=== PATIENT | male | born 1935 | race Caucasian/White ===

== ENCOUNTER 2016-12-25 16:03 | Inpatient (IN) | payer OTHER, MEDICARE ==
[~2016-12-25] VITALS: Ht 182.9 cm; Wt 103.0 kg
[2016-12-25] VITALS (8 sets, daily range): BP systolic 99–200; BP diastolic 56–95; PULSE 74–105; RESP 16–18; TEMP 98.1–99; O2SAT 95–100
[~2016-12-25 16:03] MED LIST: AZAT50 PO
[2016-12-25] MEDS ORDERED: IOHEXOL 350 MG/ML 10 ML VIAL (for RAD DIAG) IV PUSH ONE (16:04)
[2016-12-25] MEDS ORDERED: ceFAZolin 2 GM PREMIX 50 ML IV ONE (16:30)
[2016-12-25] MEDS ORDERED: LIDOCAINE 2%/EPINEPHrine 1:100,000 30ML MDV INFIL ONE (16:30)
[2016-12-25] MEDS ORDERED: ONDANSETRON HCL 4 MG/2 ML VIAL IVP ONE (16:30)
[2016-12-25] MEDS ORDERED: DIPHTH/TETANUS/ACEL PERTUSSIS (BOOSTER) 0.5 ML VIAL/PFS IM ONE (16:30)
[2016-12-25] MEDS ORDERED: SODIUM CHLORIDE 0.9% FLUSH 10 ML FLUSH IVF PRN (16:30)
--- NOTE | 2016-12-25 16:44 | PD ---
Physical Exam Date Seen by Provider: Dec 25, 2016 Time Seen by Provider: 16:43 Data Data Last Documented VS Vital Signs Date Time Temp Pulse Resp B/P (MAP) Pulse Ox O2 Delivery O2 Flow Rate FiO2 12/25/16 18:14 95 16 149/58 (88) 95 12/25/16 16:25 99.0 Room Air Orders Orders Complete Blood Count With Diff (12/25/16 16:16) Prothrombin Time / Inr (Pt) (12/25/16 16:16) Act Partial Throm Time (Ptt) (12/25/16 16:16) Type And Screen (12/25/16 16:16) Chest, Single Ap (12/25/16 16:16) Pelvis, Ap Only (Routine) (12/25/16 16:16) Ct Brain W/O Iv Contrast(Rout) (12/25/16 16:16) Ct Cerv Spine W/O Contrast (12/25/16 16:16) Ct Abd/Pel W Iv Contrast(Rout) (12/25/16 16:16) Ct Thorax/ Chest W Iv Contrast (12/25/16 16:16) Iv Access Insert/Monitor (12/25/16 16:16) Ecg Monitoring (12/25/16 16:16) Oximetry (12/25/16 16:16) Oxygen Administration (12/25/16 16:16) Remove Backboard (12/25/16 16:16) Cefazolin 2 Gm Premix (Ancef 2 Gm Premix (12/25/16 16:30) Ondansetron Inj (Zofran Inj) (12/25/16 16:30) Vgxz-Xyt-Cbaqnn (Booster) Inj (Boostrix (12/25/16 16:30) Sodium Chloride 0.9% Flush (Ns Flush) (12/25/16 16:30) Ondansetron Inj (Zofran Inj) (12/25/16 17:15) Basic Metabolic Panel (Bmp) (12/25/16 16:00) Lidocai-Epi 2%-1:100,000 Inj (Xylocaine- (12/25/16 17:30) Iohexol 350 Inj (Omnipaque 350 Inj) (12/25/16 16:04) Consult Neurosurgery (12/25/16 ) Admit Order (Ed Use Only) (12/25/16 18:21) Labs Laboratory Tests Test 12/25/16 16:00 White Blood Count 10.5 TH/MM3 Red Blood Count 4.45 MIL/MM3 Hemoglobin 13.6 GM/DL Hematocrit 40.1 % Mean Corpuscular Volume 90.0 FL Mean Corpuscular Hemoglobin 30.5 PG Mean Corpuscular Hemoglobin Concent 33.8 % Red Cell Distribution Width 14.6 % Platelet Count 192 TH/MM3 Mean Platelet Volume 9.5 FL Neutrophils (%) (Auto) 90.5 % Lymphocytes (%) (Auto) 6.6 % Monocytes (%) (Auto) 1.9 % Eosinophils (%) (Auto) 0.5 % Basophils (%) (Auto) 0.5 % Neutrophils # (Auto) 9.5 TH/MM3 Lymphocytes # (Auto) 0.7 TH/MM3 Monocytes # (Auto) 0.2 TH/MM3 Eosinophils # (Auto) 0.1 TH/MM3 Basophils # (Auto) 0.1 TH/MM3 CBC Comment DIFF FINAL Differential Comment Prothrombin Time 10.7 SEC Prothromb Time International Ratio 1.0 RATIO Activated Partial Thromboplast Time 23.8 SEC Blood Urea Nitrogen 15 MG/DL Creatinine 1.04 MG/DL Random Glucose 253 MG/DL Calcium Level 8.1 MG/DL Sodium Level 141 MEQ/L Potassium Level 3.9 MEQ/L Chloride Level 105 MEQ/L Carbon Dioxide Level 24.7 MEQ/L Anion Gap 11 MEQ/L Estimat Glomerular Filtration Rate 69 ML/MIN MDM Supervised Visit with ETTA: No Narrative Course I was asked to evaluate this patient's scalp laceration. The patient was initially seen by Dr. Santo. Please see that note for full H& P. On my exam the patient is alert but confused. There is a complex laceration of the forehead totaling approximately 8-10 cm. Laceration repair was performed. Please see my procedure note for details. Dr. Santo retains care of this patient. Please see her note for disposition. Procedures Procedure Narrative LACERATION LOCATION: Scalp LENGTH: 8-10 cm NUMBER OF STITCHES/LES: 8 deep, 17 superficial REPAIR: The area of the laceration was prepped with Betadine and sterilely draped. The laceration was infiltrated with 2% lidocaine with epinephrine. The wound was copiously irrigated and explored without evidence of foreign body , tendon injury or neurovascular injury. The wound was closed using 3-0 Vicryl and 4-0 nylon. This was a 2 layer repair. A sterile dressing was applied. The patient was advised to keep the dressing clean and dry. Patient tolerated the procedure well. Angelina Borden Dec 25, 2016 16:44
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
[2016-12-25 17:06] LABS: APTT (PATIENT) 23.8 SEC (24.3-30.1); PROTHROMBIN TIME - PATIENT 10.7 SEC (9.8-11.6)
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
[2016-12-25] MEDS ORDERED: ONDANSETRON HCL 4 MG/2 ML VIAL IV PUSH ONE (17:15)
[2016-12-25 17:21] LABS: BICARBONATE 24.7 MEQ/L (21.0-32.0); POTASSIUM 3.9 MEQ/L (3.5-5.1)
[2016-12-25 17:25] LABS: AUTOMATED NEUTROPHIL # 9.5 TH/MM3 (1.8-7.7); BASOPHIL # 0.1 TH/MM3 (0-0.2); BASOPHIL % 0.5 % (0.0-2.0); EOSINOPHIL # 0.1 TH/MM3 (0-0.4); EOSINOPHIL % 0.5 % (0.0-4.0); HEMATOCRIT 40.1 % (39.0-51.0); HEMO FLAGS DIFF FINAL; LYMPH % 6.6 % (9.0-44.0); LYMPHOCYTE # 0.7 TH/MM3 (1.0-4.8); MEAN CORPUSCULAR HEMOGLOBIN 30.5 PG (27.0-34.0); MEAN CORPUSCULAR HGB CONC 33.8 % (32.0-36.0); MONO % 1.9 % (0.0-8.0); NEUT % 90.5 % (16.0-70.0); PLATELET COUNT 192 TH/MM3 (150-450); RED BLOOD COUNT 4.45 MIL/MM3 (4.50-5.90); RED CELL DISTRIBUTION WIDTH 14.6 % (11.6-17.2); WHITE BLOOD COUNT 10.5 TH/MM3 (4.0-11.0)
[2016-12-25] MEDS ORDERED: LIDOCAINE 2%/EPINEPHrine 1:100,000 20ML MDV INFIL ONE (17:30)
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
[2016-12-25] MEDS ORDERED: MAGNESIUM HYDROXIDE SUSP 30 ML CUP PO PRN (19:45)
[2016-12-25] MEDS ORDERED: ACETAMINOPHEN 325 MG TAB PO PRN (19:45)
[2016-12-25] MEDS ORDERED: ONDANSETRON HCL 4 MG/2 ML VIAL IV PRN (19:45)
[2016-12-25] MEDS: PANTOPRAZOLE SODIUM 40 MG VIAL IVP SCH (19:45)
[2016-12-25] MEDS ORDERED: MISCELLANEOUS NURSING INFORMATION XX SCH (19:45)
[2016-12-25] MEDS ORDERED: CHLORHEXIDINE GLUCONATE 2 % 1 PACK (2 CLOTHS) TOP PRN (19:45)
[2016-12-25] MEDS ORDERED: ENALAPRILAT 1.25 MG/ML VIAL IV PRN (19:45)
[2016-12-25] MEDS: SODIUM CHLORIDE 0.9% FLUSH 10 ML FLUSH IV FLUSH SCH (21:00)
[2016-12-25] MEDS: BACITRACIN TOP OINT 15 GM TUBE TOP SCH (21:00)
[2016-12-25] MEDS: REMOVE OLD LIDOCAINE PATCH T-DERMAL SCH (21:00)
[2016-12-25] MEDS: ACETAMINOPHEN 1000 MG/100 ML 100 ML IV SCH (21:00)
[2016-12-25] MEDS: DOCUSATE SODIUM 50 MG/SENNA 8.6 MG TAB PO SCH (21:00)
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
[2016-12-26] VITALS (21 sets, daily range): BP systolic 75–146; BP diastolic 45–74; PULSE 78–99; RESP 16–24; TEMP 97.4–98.5; O2SAT 94–100
[2016-12-26] MEDS: METHOCARBAMOL 500 MG TAB PO SCH ×3 (00:45→21:20)
[2016-12-26] MEDS ORDERED: SODIUM CHLORID 0.9% 500 ML INJ 500 ML IV ONE (01:00)
[2016-12-26] MEDS: NS + KCL 20 MEQ INJ 1,000 ML IV SCH ×2 (01:00→02:49)
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
[2016-12-26] MEDS ORDERED: SODIUM CHLOR 0.9% 1000 ML INJ 1,000 ML IV ONE (02:00)
[2016-12-26] MEDS: CHLORHEXIDINE GLUCONATE 2 % 1 PACK (2 CLOTHS) TOP SCH (04:00)
[2016-12-26] MEDS: ACETAMINOPHEN 1000 MG/100 ML 100 ML IV SCH ×2 (04:06→08:33)
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
[2016-12-26] MEDS: levETIRAcetam INJ 500 MG in SODIUM CHLORIDE 0.9% INJ 100 ML IV SCH ×2 (08:33→21:19)
[2016-12-26] MEDS: DOCUSATE SODIUM 50 MG/SENNA 8.6 MG TAB PO SCH ×2 (08:33→21:20)
[2016-12-26] MEDS: SODIUM CHLORIDE 0.9% FLUSH 10 ML FLUSH IV FLUSH SCH ×2 (08:33→21:20)
[2016-12-26] MEDS: PANTOPRAZOLE SODIUM 40 MG VIAL IVP SCH (08:33)
[2016-12-26] MEDS: BACITRACIN TOP OINT 15 GM TUBE TOP SCH ×2 (08:34→21:00)
[2016-12-26] MEDS: LIDOCAINE HCL 5% PATCH T-DERMAL SCH (08:37)
[2016-12-26] MEDS: RESP: ALBUTEROL 2.5 MG/IPRATROPIUM 0.5 MG NEB (SCH) NEB ×3 (08:45→20:00)
--- NOTE | 2016-12-26 09:16 | RADRPT ---
EXAM DATE/TIME: 12/26/2016 08:51 [facility] COMPARISON: CHEST SINGLE AP, December 25, 2016, 16:40. INDICATIONS : Pulmonary contusion. Chest pain. MEDICAL HISTORY : Diverticulitis. Seizures. SURGICAL HISTORY : Cholecystectomy. Inguinal hernia repair. ENCOUNTER: Subsequent ACUITY: 2 days PAIN SCORE: 3/10 LOCATION: middle chest FINDINGS: A single view of the chest demonstrates the lungs to be symmetrically aerated without evidence of mas s, infiltrate or effusion. The cardiomediastinal contours are unremarkable. Osseous structures are intact. CONCLUSION: No acute disease. Pedro Burr MD on December 26, 2016 at 9:13 Board Certified Radiologist. This report was verified electronically.
[2016-12-26] MEDS ORDERED: LIDOCAINE HCL 1% 50 ML VIAL INFIL ONE (10:00)
[2016-12-26] MEDS ORDERED: OXYMETAZOLINE HCL 0.05% 15 ML NASAL SPRAY NASAL ONE (10:00)
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
[2016-12-26] MEDS ORDERED: DEXTROSE 50% IN WATER 50 ML VIAL(D50) IV PRN (12:45)
[2016-12-26] MEDS ORDERED: GLUCAGON 1 MG/ML VIAL OTHER PRN (12:45)
[2016-12-26] MEDS: POLYETHYLENE GLYCOL 17 GM PKG PO SCH (13:36)
[2016-12-26 14:24] LABS: AUTOMATED NEUTROPHIL # 11.7 TH/MM3 (1.8-7.7); BASOPHIL % 0.2 % (0.0-2.0); HEMATOCRIT 31.1 % (39.0-51.0); HEMO FLAGS DIFF FINAL; LYMPH % 5.1 % (9.0-44.0); LYMPHOCYTE # 0.7 TH/MM3 (1.0-4.8); MEAN CELL VOLUME 91.2 FL (80.0-100.0); MEAN CORPUSCULAR HEMOGLOBIN 29.4 PG (27.0-34.0); MEAN CORPUSCULAR HGB CONC 32.2 % (32.0-36.0); MONO % 7.5 % (0.0-8.0); NEUT % 87.2 % (16.0-70.0); PLATELET COUNT 210 TH/MM3 (150-450); RED BLOOD COUNT 3.41 MIL/MM3 (4.50-5.90); RED CELL DISTRIBUTION WIDTH 14.8 % (11.6-17.2); WHITE BLOOD COUNT 13.4 TH/MM3 (4.0-11.0)
[2016-12-26 14:41] LABS: ALT (GPT) 55 U/L (12-78); ANION GAP 8 MEQ/L (5-15); AST (GOT) 115 U/L (15-37); BICARBONATE 25.5 MEQ/L (21.0-32.0); BLOOD UREA NITROGEN 25 MG/DL (7-18); CHLORIDE 109 MEQ/L (98-107); GLOMERULAR FILTRATION RATE 66 ML/MIN (>89); POTASSIUM 4.7 MEQ/L (3.5-5.1); SODIUM (NA) 142 MEQ/L (136-145)
[2016-12-26 14:44] LABS: ALKALINE PHOSPHATASE 71 U/L (45-117); TOTAL BILIRUBIN ADULT 0.7 MG/DL (0.2-1.0)
--- NOTE | 2016-12-26 15:34 | RADRPT ---
EXAM DATE/TIME: 12/26/2016 14:38 [facility] COMPARISON: No previous studies available for comparison. INDICATIONS : C1 fracture. MEDICAL HISTORY : None. SURGICAL HISTORY : None. ENCOUNTER: Initial ACUITY: 1 day PAIN SCORE: 4/10 LOCATION: neck TECHNIQUE: Multiplanar, multisequence MRI examination of the cervical spine was performed. FINDINGS: VERTEBRAE: Patient has history of C1 fracture. ALIGNMENT: No evidence of subluxation. CORD: Supple signal in the cord C5 and C6. POST FOSSA: The cerebellar tonsils are normal in position. There is no foramen magnum stenosis. C2-C3: The thecal sac has a normal configuration. There is no evidence of disc herniation or spinal canal s tenosis. The neural foramina are patent bilaterally. C3-C4: The thecal sac has a normal configuration. There is no evidence of disc herniation or spinal canal s tenosis. The neural foramina are patent bilaterally. C4-C5: Uncinate ridging is present with mild central bulging. There is no significant spinal stenosis. Min imal neuroforamina encroachment is present. C5-C6: Broad-based disc bulge is present with uncinate ridging. There is moderate spinal stenosis. There i s mild left neural foramen encroachment. C6-C7: Broad-based disc bulging and uncinate ridging. There is mild neuroforaminal encroachment bilaterally . There is moderate spinal stenosis. C7-T1: The thecal sac has a normal configuration. There is no evidence of disc herniation or spinal canal s tenosis. The neural foramina are patent bilaterally. CONCLUSION: Osteophyte disc complex C5-C6 and C6-7 moderate spinal stenosis. Controlled flexion extension films may be of benefit to exclude functional stenosis.. Subtle cord signal as described above. There is no hematoma. Alfredo Yanes MD FACR on December 26, 2016 at 15:29 Board Certified Radiologist. This report was verified electronically.
[2016-12-26] MEDS: INSULIN NovoLIN REGULAR SUPPLEMENTAL SCALE SQ SCH ×2 (15:37→21:00)
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
[2016-12-26 17:08] LABS: HEMOGLOBIN A1b 1.5 %; HEMOGLOBIN LA1C 2.2 %; HEMOGLOBIN P3 3.7 %
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
[2016-12-26 17:37] LABS: HEMOGLOBIN A1a 1.3 %
[2016-12-26 17:38] LABS: HEMOGLOBIN Ao 85.9 %
[2016-12-26] MEDS: REMOVE OLD LIDOCAINE PATCH T-DERMAL SCH (21:00)
[2016-12-26] MEDS: oxyCODONE/ACETAMINOPHEN 5 MG/325 MG TAB PO PRN (21:30)
[2016-12-27] VITALS (19 sets, daily range): BP systolic 99–154; BP diastolic 58–74; PULSE 84–165; RESP 18–26; TEMP 97.8–98.7; O2SAT 92–100
[2016-12-27] MEDS: NS + KCL 20 MEQ INJ 1,000 ML IV SCH (00:44)
[2016-12-27] MEDS: oxyCODONE/ACETAMINOPHEN 5 MG/325 MG TAB PO PRN ×3 (01:57→20:43)
[2016-12-27] MEDS: CHLORHEXIDINE GLUCONATE 2 % 1 PACK (2 CLOTHS) TOP SCH (04:00)
[2016-12-27] MEDS: METHOCARBAMOL 500 MG TAB PO SCH ×3 (05:55→20:43)
[2016-12-27] MEDS: INSULIN NovoLIN REGULAR SUPPLEMENTAL SCALE SQ SCH ×4 (06:14→20:44)
[2016-12-27] MEDS: RESP: ALBUTEROL 2.5 MG/IPRATROPIUM 0.5 MG NEB (SCH) NEB ×3 (08:55→20:57)
[2016-12-27] MEDS: BACITRACIN TOP OINT 15 GM TUBE TOP SCH ×2 (09:00→21:00)
[2016-12-27] MEDS ORDERED: LACTULOSE SYRUP 20 GM/30 ML CUP PO ONE (09:30)
[2016-12-27] MEDS: POLYETHYLENE GLYCOL 17 GM PKG PO SCH (09:31)
[2016-12-27] MEDS: DOCUSATE SODIUM 50 MG/SENNA 8.6 MG TAB PO SCH ×2 (09:31→20:43)
[2016-12-27] MEDS: LIDOCAINE HCL 5% PATCH T-DERMAL SCH (09:32)
[2016-12-27] MEDS ORDERED: PNEUMOCOCCAL POLYVALENT INJ 25 MCG/0.5 ML SYR IM ONE (10:00)
[2016-12-27] MEDS: SODIUM CHLORIDE 0.9% FLUSH 10 ML FLUSH IV FLUSH SCH ×2 (10:02→20:45)
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
[2016-12-27 11:29] LABS: BLOOD GAS BASE EXCESS 1.4 mmol/L (-2-2); BLOOD GAS CARBOXYHEMOGLOBIN 1.8 % (0-4); BLOOD GAS HCO3 25 mmol/L (22-26); BLOOD GAS O2 HGB SATURATION 94 % (90-100); BLOOD GAS OXYGEN CONTENT 10.9 Vol % (12.0-20.0); BLOOD GAS PCO2 40 mmHg (38-42); BLOOD GAS PO2 82 mmHg (61-120); BLOOD GAS TOTAL HGB 8.1 G/DL (12.0-16.0); CRITICAL VALUE NO; DRAW SITE RT RADIAL; LITER FLOW 1.5 L/M; NUMBER OF ARTERIAL PUNCTURES 1; OXYGEN DEVICE NASAL CANNULA; STAT YES; TEMP CORR TO 98.6; ULNAR PULSE PRESENT
[2016-12-27 12:00] LABS: MAGNESIUM 2.1 MG/DL (1.5-2.5)
[2016-12-27] MEDS: levETIRAcetam 500 MG TAB PO SCH ×2 (12:19→20:43)
[2016-12-27] MEDS: AMIODARONE INJ 450 MG in DEXTROSE 5% IN WATE(EXCEL) INJ 241 ML IV SCH ×4 (12:23→18:20)
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
[2016-12-27] MEDS ORDERED: DULO1CAP2 PO (19:03)
[2016-12-27] MEDS ORDERED: ZETI10TA5 PO (19:04)
[2016-12-27] MEDS: REMOVE OLD LIDOCAINE PATCH T-DERMAL SCH (20:43)
[2016-12-27] MEDS: METOPROLOL TARTRATE 25 MG TAB PO SCH (20:47)
[2016-12-27] MEDS ORDERED: levETIRAcetam 250 MG TAB PO SCH (21:00)
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
[2016-12-27] MEDS ORDERED: MELATONIN 5 MG TAB PO SCH (22:45)
[2016-12-27] MEDS ORDERED: VALPROIC ACID 250 MG CAP PO SCH (22:45)
[2016-12-28] VITALS (12 sets, daily range): BP systolic 95–106; BP diastolic 55–67; PULSE 81–100; RESP 18–20; TEMP 97.7–98; O2SAT 93–100
[2016-12-28] MEDS: oxyCODONE/ACETAMINOPHEN 5 MG/325 MG TAB PO PRN (01:16)
[2016-12-28] MEDS: CHLORHEXIDINE GLUCONATE 2 % 1 PACK (2 CLOTHS) TOP SCH (04:00)
[2016-12-28] MEDS: MORPHINE SULFATE 4 MG/ML INJ IV PUSH PRN ×2 (04:12→11:28)
--- NOTE | 2016-12-28 06:06 | RADRPT ---
EXAM DATE/TIME: 12/28/2016 05:40 [facility] COMPARISON: CHEST SINGLE AP, December 26, 2016, 8:51. INDICATIONS : Evaluate for pulmonary contusion. MEDICAL HISTORY : Diverticulitis. Seizures. SURGICAL HISTORY : Cholecystectomy. Inguinal hernia repair. ENCOUNTER: Subsequent ACUITY: 4 - 6 days PAIN SCORE: Non-responsive. LOCATION: chest FINDINGS: Portable AP view of the chest demonstrates a normal-sized cardiac silhouette calcification of the aor ta. There is atelectasis at the lung bases with elevation of the right hemidiaphragm. No pneumothorax , airspace consolidation, or pleural effusion is visualized. CONCLUSION: Underinflation with atelectasis at the bases. No acute cardiopulmonary abnormality is identified. Pedro Chen MD on December 28, 2016 at 6:04 Board Certified Radiologist. This report was verified electronically.
[2016-12-28] MEDS: METHOCARBAMOL 500 MG TAB PO SCH ×3 (06:10→21:06)
[2016-12-28] MEDS: INSULIN NovoLIN REGULAR SUPPLEMENTAL SCALE SQ SCH ×4 (06:10→20:49)
--- NOTE | 2016-12-28 07:44 | PD.CARD.PN ---
Subjective Subjective Remarks Remains confused. No complaints of chest pain. Rhythm stable Objective Vital Signs / I&O Vital Signs Date Time Temp Pulse Resp B/P (MAP) Pulse Ox O2 Delivery O2 Flow Rate FiO2 12/28/16 06:00 82 12/28/16 04:00 86 12/28/16 04:00 97.9 84 18 98/62 (74) 98 12/28/16 02:00 85 12/28/16 00:00 86 12/28/16 00:00 98.0 85 20 106/55 (72) 96 12/27/16 22:00 84 12/27/16 21:00 100 Nasal Cannula 2.00 12/27/16 20:00 94 12/27/16 20:00 98.2 92 20 124/61 (82) 100 12/27/16 19:00 100 Nasal Cannula 2.00 12/27/16 18:20 93 109/63 12/27/16 18:00 93 12/27/16 16:00 98.7 96 18 125/63 (83) 100 12/27/16 16:00 97.9 99 19 125/63 (83) 94 12/27/16 16:00 96 12/27/16 14:00 93 12/27/16 12:23 93 110/66 12/27/16 12:00 98.7 94 20 134/62 (86) 92 12/27/16 12:00 84 12/27/16 12:00 98.7 96 26 110/66 (81) 94 12/27/16 12:00 94 12/27/16 11:00 96 12/27/16 11:00 98.7 96 19 122/60 (80) 94 12/27/16 10:50 93 22 110/66 (81) 12/27/16 10:50 94 12/27/16 10:30 162 12/27/16 10:30 160 25 99/58 (72) 12/27/16 10:15 165 12/27/16 10:15 165 25 115/62 (79) 12/27/16 10:00 98.7 96 19 122/60 (80) 94 12/27/16 10:00 95 12/27/16 08:55 94 21 12/27/16 08:00 98.4 88 22 154/74 (100) 100 12/27/16 08:00 87 I/O 12/27/16 12/27/16 12/27/16 12/28/16 12/28/16 12/28/16 07:00 15:00 23:00 07:00 15:00 23:00 Intake Total 420 ml 900 ml 320 ml 450 ml Output Total 450 ml 675 ml 652 ml Balance -30 ml 900 ml -355 ml -202 ml Intake Oral 420 ml 320 ml 450 ml IV Total 900 ml Output Urine Total 400 ml 675 ml 652 ml Gastric Drainage Total 50 ml # Voids 3 2 # Bowel Movements 0 0 0 Physical Exam Lyungs clear RRR no murmur Laboratory Laboratory Tests Test 12/27/16 11:12 12/27/16 11:22 12/27/16 17:30 Blood Gas Puncture Site RT RADIAL Blood Gas Patient Temperature 98.6 Blood Gas HCO3 25 mmol/L Blood Gas Base Excess 1.4 mmol/L Blood Gas Oxygen Saturation 94 % Arterial Blood pH 7.42 Arterial Blood Partial Pressure CO2 40 mmHg Arterial Blood Partial Pressure O2 82 mmHg Arterial Blood Oxygen Content 10.9 Vol % Arterial Blood Carboxyhemoglobin 1.8 % Arterial Blood Methemoglobin 1.0 % Blood Gas Hemoglobin 8.1 G/DL Oxygen Delivery Device NASAL CANNULA Blood Gas Liter Flow 1.5 L/M Magnesium Level 2.1 MG/DL Troponin I 0.55 NG/ML Potassium Level 4.2 MEQ/L Assessment and Plan Assessment and Plan Stable CV. Will D/C amiodarone. Continue metoprolol. Brandan Chandler MD Dec 28, 2016 07:44
[2016-12-28] MEDS: RESP: ALBUTEROL 2.5 MG/IPRATROPIUM 0.5 MG NEB (SCH) NEB ×3 (08:02→20:22)
[2016-12-28] MEDS: SODIUM CHLORIDE 0.9% FLUSH 10 ML FLUSH IV FLUSH SCH ×2 (09:00→20:30)
[2016-12-28] MEDS: POLYETHYLENE GLYCOL 17 GM PKG PO SCH (09:37)
[2016-12-28] MEDS: levETIRAcetam 500 MG TAB PO SCH ×2 (09:38→20:30)
[2016-12-28] MEDS: LIDOCAINE HCL 5% PATCH T-DERMAL SCH (09:38)
[2016-12-28] MEDS: METOPROLOL TARTRATE 25 MG TAB PO SCH ×2 (09:38→20:30)
[2016-12-28] MEDS: DOCUSATE SODIUM 50 MG/SENNA 8.6 MG TAB PO SCH ×2 (09:38→20:29)
[2016-12-28] MEDS: FAMOTIDINE 20 MG TAB PO SCH ×2 (09:38→20:30)
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
[2016-12-28 10:46] LABS: AUTOMATED NEUTROPHIL # 8.7 TH/MM3 (1.8-7.7); BASOPHIL % 0.3 % (0.0-2.0); EOSINOPHIL % 0.5 % (0.0-4.0); HEMATOCRIT 24.1 % (39.0-51.0); HEMO FLAGS DIFF FINAL; LYMPH % 5.7 % (9.0-44.0); LYMPHOCYTE # 0.6 TH/MM3 (1.0-4.8); MEAN CELL VOLUME 90.6 FL (80.0-100.0); MEAN CORPUSCULAR HGB CONC 33.1 % (32.0-36.0); MONO % 6.2 % (0.0-8.0); NEUT % 87.3 % (16.0-70.0); PLATELET COUNT 179 TH/MM3 (150-450); RED BLOOD COUNT 2.66 MIL/MM3 (4.50-5.90); RED CELL DISTRIBUTION WIDTH 14.7 % (11.6-17.2)
[2016-12-28 10:55] LABS: BICARBONATE 27.8 MEQ/L (21.0-32.0); POTASSIUM 4.3 MEQ/L (3.5-5.1)
[2016-12-28] MEDS: BACITRACIN TOP OINT 15 GM TUBE TOP SCH ×2 (10:55→20:33)
[2016-12-28] MEDS ORDERED: MAGNESIUM CITRATE SOLN 300 ML BTL PO ONE (11:00)
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
[2016-12-28] MEDS: VALPROIC ACID 250 MG CAP PO SCH ×3 (11:37→17:11)
[2016-12-28] MEDS: HALOPERIDOL LACTATE 5 MG/ML AMP IV PRN ×2 (12:32→17:55)
[2016-12-28] MEDS ORDERED: VALPROIC ACID 250 MG CAP PO SCH (13:00)
[2016-12-28] MEDS ORDERED: ENOXAPARIN SODIUM 40 MG/0.4 ML SYRINGE SQ SCH (13:00)
--- NOTE | 2016-12-28 15:42 | ECHRPT ---
Indication: a fib/flutter CONCLUSIONS The left ventricular systolic function is moderately reduced with an estimated ejection fraction in the range of 40-45%. The left atrial size is mildly dilated. No mitral valve stenosis. Mild mitral valve regurgitation. No aortic valve regurgitation. No aortic valve stenosis. Mild thickening of the aortic valve leaflets. There is mild tricuspid valve regurgitation. The pulmonary valve is not well visualized. BP: / HR: Rhythm: MEASUREMENTS (Male / Female) Normal Values Technical Quality:Good 2D ECHO LV Diastolic Diameter PLAX 5.7 cm 4.2 - 5.9 / 3.9 - 5.3 cm LV Systolic Diameter PLAX 4.8 cm IVS Diastolic Thickness 1.3 cm 0.6 - 1.0 / 0.6 - 0.9 cm LVPW Diastolic Thickness 1.0 cm 0.6 - 1.0 / 0.6 - 0.9 cm LV Relative Wall Thickness 0.4 RV Internal Dim ED PLAX 3.0 cm M-MODE Aortic Root Diameter MM 3.6 cm LA Systolic Diameter MM 5.4 cm LA Ao Ratio MM 1.5 AV Cusp Separation MM 2.1 cm DOPPLER Mitral E Point Velocity 65.2 cm/s Mitral A Point Velocity 57.8 cm/s Mitral E to A Ratio 1.1 LV E' Lateral Velocity 8.5 cm/s Mitral E to LV E' Lateral Ratio 7.7 LV E' Septal Velocity 4.8 cm/s Mitral E to LV E' Septal Ratio 13.6 TR Peak Velocity 276.0 cm/s TR Peak Gradient 30.5 mmHg FINDINGS LEFT VENTRICLE The left ventricular systolic function is moderately reduced with an estimated ejection fraction in the range of 40-45%. RIGHT VENTRICLE Normal right ventricular size and systolic function. LEFT ATRIUM The left atrial size is mildly dilated. RIGHT ATRIUM The right atrial size is normal. ATRIAL SEPTUM Normal atrial septal thickness without atrial level shunting by limited color doppler interrogation. AORTA The aortic root and proximal ascending aorta are normal in size on limited imaging. MITRAL VALVE Structurally normal mitral valve. No mitral valve stenosis. Mild mitral valve regurgitation. AORTIC VALVE No aortic valve regurgitation. No aortic valve stenosis. Mild thickening of the aortic valve leaflets. TRICUSPID VALVE Structurally normal tricuspid valve. There is mild tricuspid valve regurgitation. PULMONARY VALVE The pulmonary valve is not well visualized. VESSELS The inferior vena cava is normal in size. PERICARDIUM No pericardial effusion. Gilma Olivera MD, FACC (Electronically Signed) Final Date:28 December 2016 15:41
[2016-12-28] MEDS: QUEtiapine FUMARATE 25 MG TAB PO SCH ×2 (16:07→21:06)
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
[2016-12-28] MEDS: REMOVE OLD LIDOCAINE PATCH T-DERMAL SCH (20:32)
[2016-12-28] MEDS ORDERED: traZODone HCL 100 MG TAB PO SCH (21:00)
[2016-12-28] MEDS ORDERED: PHENYLEPHRINE HCL 10 MG/ML VIAL ONE (23:43)
--- NOTE | 2016-12-29 00:01 | PD.PROCEDR ---
Procedure Note Procedure Date: 12/28/16 Procedure: Cardiopulmonary resucitation Indication: PEA cardiac arrest Details of procedure: I was called to patient's bedside after PEA cardiac arrest. Patient not previously known to me. Per ACLS protocol pt received CPR, BVM via ETT, multiple doses of epinephrine, CaCl2, dextrose, multiple amps of bicarb, NS 1L, Narcan 1 mg IV, Romazicon 0.4 mg IV. Refer to code sheet for further details. Telemetry with severe ST depression in lead II consistent with ischemia. Bedside Echo without e/o PTX or pericardial tamponade. Did initially attain ROSC after 11 minutes. Placed patient on dopamine, ordered EKG and labs. Discussed with Dr. Joseph who stated that if CT brain is stable could initiate ASA and heparin for anticoagulation. He would not be a candidate for cardiac catheterization or revascularization due to risk of bleeding. However, patient again lost pulse and underwent additional 30 minutes of CPR but ultimately was in asystole with no cardiac activity on bedside Echo and patient . Family updated when they arrived at bedside and multiple questions answered. Discussed challenges and limitations of treatment options for NSTEMI in setting of trauma and intracerebral contusions. Clara Euceda MD Dec 29, 2016 00:01
--- NOTE | 2016-12-29 00:02 | PD.PROCEDR ---
Procedure Note Procedure PROCEDURE NOTE PROCEDURE: Endotracheal intubation INDICATION: Acute respiratory failure, cardiac arrest DETAILS OF PROCEDURE: In-line C-spine immobilization was maintained. The patient was bagged with 100 % FiO2 via [id number]. Laryngoscopy was performed with a 4 glide scope blade and a grade 1 Cormack-Lehane view was obtained. On single attempt a size 8 endotracheal tube was visualized passing through the cords. Correct placement was confirmed with colorimetric CO2 detector. Breath sounds were equal bilaterally. No sounds auscultated over the stomach. The endotracheal tube was secured with a commercial tube ramos at a depth of 24 cm at the lips. Clraa Euceda MD Dec 29, 2016 00:02
--- NOTE | 2016-12-29 00:03 | PD.PROCEDR ---
Procedure Note Procedure DATE: 12/28/16 PROCEDURE: Right femoral arterial catheter placement INDICATION: Cardiogenic shock and need for hemodynamic monitoring. DETAILS OF PROCEDURE The patient was placed in supine position. The skin was cleansed with Chloraprep 4. Additional barrier precautions included large sterile drape, sterile gloves, sterile gown, face mask, and hat. 1% lidocaine was used for local anesthesia. On the third attempt, the artery was accessed with an introducer needle. The guide wire was advanced. Using Seldinger technique 20 gauge arterial catheter was placed. The guide wire was removed. The catheter was connected to a transducer line and flushed with saline. The video monitor displayed normal arterial wave forms. The catheter was secured with 2-0 silk. A sterile dressing with antibiotic disc was applied. ESTIMATED BLOOD LOSS: minimal COMPLICATIONS: None Clara Euceda MD Dec 29, 2016 00:03
--- NOTE | 2016-12-29 01:24 | EKG ---
Date Performed: 12/27/2016 Time Performed: 10:24:44 PTAGE: 81 years EKG: Possible atrial flutter with uncontrolled ventricular response. Lead(s) unsuitable for anal ysis: V5 Possible inferior infarct - age undetermined Ant/septal and lateral ST-T changes may be due to myocardial ischemia Abnormal ECG PREVIOUS TRACING : 04/24/1996 07.16 Compared to the previous tracing, previously Sinus rhythm , ST/T wave changes are new DOCTOR: Kaleb Moreno Interpretating Date/Time 12/29/2016 01:23:12
[2016-12-29] MEDS ORDERED: SODIUM BICARBONATE 8.4% INJ 50 MEQ/50 ML SYR IV ONE (02:44)
[2016-12-29] MEDS ORDERED: EPINEPHrine HCL (1:1000) 30 MG/30 ML VIAL IV ONE (02:44)
[2016-12-29] MEDS ORDERED: FLUMAZENIL 1 MG/10 ML VIAL IV ONE (02:44)
[2016-12-29] MEDS ORDERED: DEXTROSE 50% IN WATER 50 ML SYRINGE IV ONE (02:44)
[2016-12-29] MEDS ORDERED: CALCIUM CHLORIDE 10% SOLN 1 GRAM/10 ML SYR IV ONE (02:44)
[2016-12-29] MEDS ORDERED: NALOXONE HCL 4 MG/10 ML MDV IV ONE (02:44)
[2016-12-29] MEDS ORDERED: EPINEPHrine HCL (1:10,000) 1 MG/10 ML SYRINGE IV ONE ×2 (02:44)
[2016-12-29] MEDS ORDERED: DOPamine INJ PREMIX 500 ML IV ONE (02:44)
--- NOTE | 2016-12-29 10:17 | EKG ---
Date Performed: 12/28/2016 Time Performed: 23:14:50 PTAGE: 81 years EKG: Atrial fibrillation with slow ventricular response with paroxysmal idioventricular rhythm L eftward axis Left ventricular hypertrophy Ant/septal and lateral ST-T changes may be due to hypertrop hy and/or ischemia Abnormal ECG PREVIOUS TRACING : 12/27/2016 10.24 DOCTOR: Barry Reyes Interpretating Date/Time 12/29/2016 10:16:16
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
== END 2016-12-28 23:46 | disposition expired | DRG 963 ==
LOC: NEPC 16:03 → NEDA 18:24 → NEDH 22:31 → N03A 12-26 06:17
PROVIDERS: ADMIT Surgery; ATTEND Surgery
PROC: 5A12012 Performance of Cardiac Output, Single, Manual (ICD-10-PCS; principal; 2016-12-28)
PROC: 03HY32Z Insertion of Monitoring Device into Upper Artery, Percutaneous Approach (ICD-10-PCS; 2016-12-28)
PROC: 0BH17EZ Insertion of Endotracheal Airway into Trachea, Via Natural or Artificial Opening (ICD-10-PCS; 2016-12-28)
PROC: 5A1935Z Respiratory Ventilation, Less than 24 Consecutive Hours (ICD-10-PCS; 2016-12-28)
DX: S06.6X9A Traumatic subarachnoid hemorrhage with loss of consciousness of unspecified duration, initial encounter (principal); J96.00 Acute respiratory failure, unspecified whether with hypoxia or hypercapnia; S27.329A Contusion of lung, unspecified, initial encounter; S12.041A Nondisplaced lateral mass fracture of first cervical vertebra, initial encounter for closed fracture; E27.8 Other specified disorders of adrenal gland; S22.41XA Multiple fractures of ribs, right side, initial encounter for closed fracture; E86.9 Volume depletion, unspecified; I48.91 Unspecified atrial fibrillation; G70.00 Myasthenia gravis without (acute) exacerbation; I47.1 Supraventricular tachycardia; E78.5 Hyperlipidemia, unspecified; F40.240 Claustrophobia; I25.10 Atherosclerotic heart disease of native coronary artery without angina pectoris; S82.52XA Displaced fracture of medial malleolus of left tibia, initial encounter for closed fracture; S01.01XA Laceration without foreign body of scalp, initial encounter; S01.81XA Laceration without foreign body of other part of head, initial encounter; I46.9 Cardiac arrest, cause unspecified; K57.90 Diverticulosis of intestine, part unspecified, without perforation or abscess without bleeding; M19.90 Unspecified osteoarthritis, unspecified site; M25.78 Osteophyte, vertebrae; M48.02 Spinal stenosis, cervical region; N28.1 Cyst of kidney, acquired; V43.52XA Car driver injured in collision with other type car in traffic accident, initial encounter; Y92.410 Unspecified street and highway as the place of occurrence of the external cause; Z79.899 Other long term (current) drug therapy
CPT/HCPCS: 12034; 36556; 36600; 70450; 71010; 71260; 72125; 72141; 72170; 73610; 74177; 80048; 80053; 82805; 82948; 83036; 83735; 84132; 84484; 85025; 85610; 85730; 86850; 86900; 86901; 87641; 90471; 90715; 90732; 93005; 93306; 94002; 94150; 94640; 94664; 96374; 96375; 96376; C9113; J0131; J0171; J0282; J0690; J1265; J1630; J1650; J1953; J2270; J2310; J2370; J2405; J3480; J7030; J7040; J7060; L0172; L2114; Q9967